=== PATIENT | female | born 1995 | race Caucasian/White ===

== ENCOUNTER → 2016-03-21 | Outpatient (CLI) | payer BC ==
--- NOTE | 2016-03-29 13:49 | HOLTER ---
Interpretive Statements Patient did not return diary because the cat ate it. Forty eight hour holter done for evaluation of syncopy in this 20 year girl. No activity or symptoms recorded. The maximum heart rate was sinus tachycardia at rate of 165 at 10:45 AM. The minimum rate was 50 during sleep hours and average rate of 92. No significant ectopic tachycardia or pauses were noted with 5 PACs and 24 recorded PVCs. The patient did exhibit sustained sinus tachycardia of up to 135 for over 1 hour starting at 9 AM but activity level is not known for that time period. There were no diagnostic ST-T wave changes. Imp: Nondiagnostic holter study with no recorded activity or symptoms. No syncopal symptoms. There were rare PACs and VPCs with no sustained ectopic tachycardia and no prolonged pauses. The patient did have frequent and prolonged sinus tachycardia however activity levels at that time were unknown. Electronically Signed On 03-30-16 12:54:40 [facility] by Carlos Lechuga [id number]
== END ==
LOC: EKG 11:47
PROVIDERS: ATTEND Family Medicine
DX: R55 Syncope and collapse (principal)
CPT/HCPCS: 93225; 93226; 93227

== ENCOUNTER → 2016-03-21 | Outpatient (CLI) | payer BC ==
[2016-03-21 12:41] LABS: HEMOGLOBIN A1C 5.08 % (4.2-6.0); MEAN BLOOD GLUCOSE (CALC) 83.164 mg/dL
== END ==
LOC: MOB LAB 11:49
PROVIDERS: ATTEND Family Medicine
DX: R55 Syncope and collapse (principal)
CPT/HCPCS: 36415; 83036; 84443

== ENCOUNTER → 2016-04-07 | Outpatient (CLI) | payer BC ==
[2016-04-07 12:39] LABS: BILIRUBIN,URINE NEGATIVE (NEG); CLARITY,URINE CLEAR (CLEAR); GLUCOSE, URINE (UA) NEGATIVE (NEG); LEUKOCYTE ESTERASE ,URINE NEGATIVE (NEG); NITRATE,URINE NEGATIVE (NEG); OCCULT BLOOD,URINE Trace-intact (NEG); PROTEIN,URINE NEGATIVE (NEG); UROBILINOGEN,URINE 0.2 mg/dL (0.2)
[2016-04-07 12:52] LABS: BACTERIA,URINE RARE; CANNABINOID SCREEN,URINE NEGATIVE (NEG); COCAINE SCREEN NEGATIVE (NEG); METHAMPHETAMINES SCREEN,URINE NEGATIVE (NEG); SQUAMOUS EPITHELIAL CELL,UR RARE; URINE SAMPLE TYPE CLEAN CATCH URINE
== END ==
LOC: MOB LAB 10:58
PROVIDERS: ATTEND Family Medicine
DX: R55 Syncope and collapse (principal); R35.0 Frequency of micturition
CPT/HCPCS: 81001; G0477